=== PATIENT | female | born 1965 | race Caucasian/White ===

== ENCOUNTER 2020-06-15 19:46 | Emergency (ER) | payer OTHER, SELFPAY ==
[~2020-06-15] VITALS: Ht 160 cm; Wt 72.6 kg
[~2020-06-15 19:46] MED LIST: MOTRIN PO
[2020-06-15 19:50] VITALS: Ht 160 cm; Wt 72.6 kg
[2020-06-15 22:19] VITALS: BP 130/70
== END 2020-06-15 22:22 | disposition home or self-care (01) ==
LOC: ED 19:46
DX: R07.89 Other chest pain (principal); R51.9 Headache, unspecified; R05 Cough; R19.7 Diarrhea, unspecified; I10 Essential (primary) hypertension; E11.9 Type 2 diabetes mellitus without complications; Z20.828 Contact with and (suspected) exposure to other viral communicable diseases; Z98.890 Other specified postprocedural states